=== PATIENT | female | born 1980 | race Caucasian/White ===

== ENCOUNTER 2020-12-08 21:38 | Emergency (ER) | payer BC ==
[2020-12-08] MEDS ORDERED: Ketorolac 15 MG/ML SDV IM ONE (23:05)
--- NOTE | 2020-12-08 23:14 | EDM.PDOC ---
ED HPI GENERAL MEDICAL PROBLEM - General Chief Complaint: Abdominal Pain Stated Complaint: GALLSTONE, ABDOMINAL PAIN Time Seen by Provider: 12/08/20 22:57 Source of Information: Reports: Patient History Limitations: Reports: No Limitations - History of Present Illness INITIAL COMMENTS - FREE TEXT/NARRATIVE: Patient is a 40-year-old female who presents today for quinten pain. Patient was seen yesterday in the walk-in clinic ultrasound shows gallstones and possible in her neck. Patient the time not having cholecystitis and was sent home to follow-up with surgery on Thursday. Patient is sedated the pain increase in abdomen but not any worse or better with anything was not radiating. Patient she is able tolerate p.o. Patient not take any meds for pain at home. abd Pain Score (Numeric/FACES): 4 - Related Data Allergies Allergy/AdvReac Type Severity Reaction Status Date / Time No Known Allergies Allergy Verified 12/08/20 22:33 Home Meds: Home Meds . [No Known Home Meds] 12/08/20 [History] Past Medical History - Past Health History Medical/Surgical History: Denies Medical/Surgical History - Infectious Disease History Infectious Disease History: Reports: Chicken Pox Social & Family History - Family History Family Medical History: Unobtainable ED ROS GENERAL - Review of Systems Review Of Systems: See Below Constitutional: Reports: No Symptoms HEENT: Reports: No Symptoms Respiratory: Reports: No Symptoms Cardiovascular: Reports: No Symptoms Endocrine: Reports: No Symptoms GI/Abdominal: Reports: Abdominal Pain : Reports: No Symptoms Musculoskeletal: Reports: No Symptoms Skin: Reports: No Symptoms Neurological: Reports: No Symptoms Psychiatric: Reports: No Symptoms Hematologic/Lymphatic: Reports: No Symptoms Immunologic: Reports: No Symptoms ED EXAM, GI/ABD - Physical Exam Exam: See Below Exam Limited By: No Limitations General Appearance: Alert, WD/WN, No Apparent Distress Respiratory/Chest: No Respiratory Distress, Lungs Clear, Normal Breath Sounds Cardiovascular: Normal Peripheral Pulses, Regular Rate, Rhythm GI/Abdominal Exam: Normal Bowel Sounds, Soft, No Distention, Tender Extremities: Normal Inspection, Normal Range of Motion Neurological: Alert, Oriented, CN II-XII Intact, Normal Cognition, Normal Gait Course - Vital Signs Last Recorded V/S: Last Vital Signs Temp 97.4 F 12/08/20 22:10 Pulse 75 06/12/21 22:10 Resp 18 12/08/20 22:10 BP 138/76 12/08/20 22:10 Pulse Ox 99 12/08/20 22:10 - Orders/Labs/Meds Labs: Laboratory Tests 12/08/20 12/08/20 12/08/20 Range/Units 23:44 23:50 23:50 WBC 10.99 (4.0-11.0) K/uL RBC 4.37 (4.30-5.90) M/uL Hgb 14.1 (12.0-16.0) g/dL Hct 41.4 (36.0-46.0) % MCV 94.7 (80.0-98.0) fL MCH 32.3 H (27.0-32.0) pg MCHC 34.1 (31.0-37.0) g/dL RDW Std Deviation 42.8 (28.0-62.0) fl RDW Coeff of Freddy 12 (11.0-15.0) % Plt Count 217 (150-400) K/uL MPV 10.70 (7.40-12.00) fL Neut % (Auto) 83.5 H (48.0-80.0) % Lymph % (Auto) 10.0 L (16.0-40.0) % [place] % (Auto) 6.1 (0.0-15.0) % Eos % (Auto) 0.2 (0.0-7.0) % Baso % (Auto) 0.2 (0.0-1.5) % Neut # (Auto) 9.2 H (1.4-5.7) K/uL Lymph # (Auto) 1.1 (0.6-2.4) K/uL [place] # (Auto) 0.7 (0.0-0.8) K/uL Eos # (Auto) 0.0 (0.0-0.7) K/uL Baso # (Auto) 0.0 (0.0-0.1) K/uL Nucleated RBC % 0.0 /100WBC Nucleated RBCs # 0 K/uL Sodium 135 L (136-145) mmol/L Potassium 3.6 (3.5-5.1) mmol/L Chloride 98 (98-107) mmol/L Carbon Dioxide 23.2 (21.0-32.0) mmol/L BUN 11 (7.0-18.0) mg/dL Creatinine 0.8 (0.6-1.0) mg/dL Est Cr Clr Drug Dosing TNP Estimated GFR (MDRD) > 60.0 ml/min Glucose 94 (74-106) mg/dL Calcium 8.6 (8.5-10.1) mg/dL Total Bilirubin 0.6 (0.2-1.0) mg/dL AST 14 L (15-37) IU/L ALT 20 (14-63) IU/L Alkaline Phosphatase 76 (46-116) U/L Total Protein 7.7 (6.4-8.2) g/dL Albumin 4.0 (3.4-5.0) g/dL Globulin 3.7 (2.6-4.0) g/dL Albumin/Globulin Ratio 1.1 (0.9-1.6) Lipase 66 L (73-393) U/L Urine HCG, Qual NEGATIVE (NEGATIVE) Meds: Medications Discontinued Medications Generic Name Dose Route Start Last Admin Trade Name Freq PRN Reason Stop Dose Admin Ketorolac Tromethamine 15 mg 12/08/20 23:05 12/08/20 23:51 Ketorolac 15 Mg/Ml Sdv IM 12/08/20 23:06 15 mg ONETIME ONE Administration - Re-Assessments/Exams Free Text/Narrative Re-Assessment/Exam: 12/09/20 00:43 Patient pain has been well controlled with Toradol in the ED. Patient is already scheduled to see surgery on Thursday. Repeated enzymes are within normal limits. Patient will be discharged home with pain control. Departure - Departure Time of Disposition: 00:44 Disposition: Home, Self-Care 01 Condition: Good Clinical Impression: Cholelithiasis - Discharge Information *PRESCRIPTION DRUG MONITORING PROGRAM REVIEWED*: Not Applicable *COPY OF PRESCRIPTION DRUG MONITORING REPORT IN PATIENT YULI: Not Applicable Instructions: Cholelithiasis, [id number] Referrals: PCP,None [Primary Care Provider] - Forms: ED Department Discharge Additional Instructions: The following information is given to patients seen in the emergency department who are being discharged to home. This information is to outline your options for follow-up care. We provide all patients seen in our emergency department with a follow-up referral. The need for follow-up, as well as the timing and circumstances, are variable depending upon the specifics of your emergency department visit. If you don't have a primary care physician on staff, we will provide you with a referral. We always advise you to contact your personal physician following an emergency department visit to inform them of the circumstance of the visit and for follow-up with them and/or the need for any referrals to a consulting specialist. The emergency department will also refer you to a specialist when appropriate. This referral assures that you have the opportunity for follow-up care with a specialist. All of these measure are taken in an effort to provide you with optimal care, which includes your follow-up. Under all circumstances we always encourage you to contact your private physician who remains a resource for coordinating your care. When calling for follow-up care, please make the office aware that this follow-up is from your recent emergency room visit. If for any reason you are refused follow-up, please contact the [facility] Emergency Department at and asked to speak to the emergency department charge nurse. Please follow up with your primary care physician. If you do not have a primary care physician, see below: [facility] [address] [place] [id number] [facility] [address] [place] [id number] You are seen today for abdominal pain. Previous ultrasound showed you have a gallstone in the gallbladder bladder neck. This may at some point require surgery but she have follow-up on Thursday. We will send you home with some pain medicine to get you through the weekend continue to follow-up. But if your pain becomes too intense please return to the ED. Otherwise follow-up with your schedule appointment. Sepsis Event Note (ED) - Evaluation Sepsis Screening Result: No Definite Risk - Focused Exam Vital Signs: Vital Signs Temp Pulse Resp BP Pulse Ox 12/08/20 22:10 97.4 F 75 18 138/76 99 - Assessment/Plan Plan: Patient is a 40-year-old female presents today for quinten pain. Patient does have some tenderness epigastric area. Will obtain basic labs and reassess patient. Will provide pain control.
[2020-12-09 00:18] LABS: BLOOD UREA NITROGEN,BUN 11 mg/dL (7.0-18.0); CARBON DIOXIDE,CO2 23.2 mmol/L (21.0-32.0); CHLORIDE,CL 98 mmol/L (98-107); GLUCOSE RANDOM 94 mg/dL (74-106); LIPASE 66 U/L (73-393); POTASSIUM,K 3.6 mmol/L (3.5-5.1); SODIUM,NA 135 mmol/L (136-145)
== END 2020-12-09 00:51 | disposition home or self-care (01) ==
LOC: MW.ED 21:38
DX: K80.20 Calculus of gallbladder without cholecystitis without obstruction (principal)
CPT/HCPCS: 36415; 80053; 81025; 83690; 85025; 96372; 99284; J1885; 99283

== ENCOUNTER 2020-12-13 08:18 | Inpatient (IN) | payer BC ==
[~2020-12-13 08:18] MED LIST: Albuterol 0.083% 2.5 MG/3 ML Neb Soln NEB PRN; Bupivacaine 0.5% 30 ML SDV ONE; HYDROmorphone 2 MG/ML Syringe IVPUSH PRN; Metoclopramide 10 MG/2 ML SDV IVPUSH PRN; Morphine 2 MG/ML SYRINGE IVPUSH PRN; Naloxone 0.4 MG/ML Syringe IVPUSH PRN; Octyl 2-Cyanoacrylate 1 Tube ONE; Ondansetron 4 MG/2 ML SDV IVPUSH PRN; Sodium Chloride 0.9% 10 ML SDV IV PRN; Sodium Chloride 0.9% 10 ML Syringe FLUSH PRN; Sodium Chloride 0.9% 2.5 ML Syringe FLUSH PRN; fentaNYL 100 MCG/2 ML SDV IVPUSH PRN
[2020-12-13] MEDS: Lactated Ringers 1,000 ML IV SCH ×2 (08:50→22:46)
[2020-12-13] MEDS ORDERED: fentaNYL 100 MCG/2 ML SDV ONE (08:54)
[2020-12-13] MEDS ORDERED: Rocuronium Bromide 50 MG/5 ML Syringe ONE ×3 (09:15→12:46)
[2020-12-13] MEDS ORDERED: Sugammadex Sodium 200 MG/2 ML VIAL ONE (09:15)
[2020-12-13] MEDS ORDERED: Lidocaine 2% 5 ML SDV ONE ×2 (09:15)
[2020-12-13] MEDS ORDERED: Ondansetron 4 MG/2 ML SDV ONE ×2 (09:15)
[2020-12-13] MEDS ORDERED: Morphine 10 MG/ML Syringe ONE (09:16)
--- NOTE | 2020-12-13 09:17 | PCM.PREANE ---
Preanesthetic Assessment - Anesthesia/Transfusion/Family Hx Anesthesia History: Prior Anesthesia Without Reaction Transfusion History: No Prior Transfusion(s) - Review of Systems General: No Symptoms Pulmonary: No Symptoms Cardiovascular: No Symptoms Gastrointestinal: No Symptoms Neurological: No Symptoms Other: Reports: None - Physical Assessment NPO Status Date: 12/13/20 NPO Status Time: 00:00 Vital Signs: Last Vital Signs Temp 98.6 F 12/13/20 08:45 Pulse 101 H 12/13/20 08:45 Resp 15 12/13/20 08:45 BP 138/91 H 12/13/20 08:45 Pulse Ox 94 L 12/13/20 08:45 Height: 5 ft 3 in Weight: 129 lb ASA Class: 1 Mental Status: Alert & Oriented x3 Dentition: Reports: Normal Dentition Thyro-Mental Finger Breadths: 3 Mouth Opening Finger Breadths: 3 ROM/Head Extension: Full Lungs: Clear to Auscultation, Normal Respiratory Effort Cardiovascular: Regular Rate, Regular Rhythm - Lab Values: Laboratory Last Values Urine HCG, Qual NEGATIVE (NEGATIVE) 12/13/20 08:28 - Allergies Allergies/Adverse Reactions: Allergies Allergy/AdvReac Type Severity Reaction Status Date / Time No Known Allergies Allergy Verified 12/11/20 09:49 - Blood Blood Available: No - Anesthesia Plan Pre-Op Medication Ordered: Other (scopolamine patch) - Acknowledgements Anesthesia Type Planned: General Anesthesia Pt an Appropriate Candidate for the Planned Anesthesia: Yes Alternatives and Risks of Anesthesia Discussed w Pt/Guardian: Yes Pt/Guardian Understands and Agrees with Anesthesia Plan: Yes PreAnesthesia Questionnaire - Past Health History Medical/Surgical History: Denies Medical/Surgical History HEENT History: Reports: Other (See Below) Other HEENT History: wears glasses/contacts Cardiovascular History: Reports: None Respiratory History: Reports: None Gastrointestinal History: Reports: Other (See Below) Other Gastrointestinal History: symptomatic cholelithiasis Genitourinary History: Reports: None [employer] REPA[employer]ER History: Reports: Musculoskeletal History: Reports: None Neurological History: Reports: None Psychiatric History: Reports: None Endocrine/Metabolic History: Reports: None Hematologic History: Reports: None Immunologic History: Reports: None Oncologic (Cancer) History: Reports: None Dermatologic History: Reports: None - Infectious Disease History Infectious Disease History: Reports: Chicken Pox - Past Surgical History Head Surgeries/Procedures: Reports: None HEENT Surgical History: Reports: Oral Surgery Cardiovascular Surgical History: Reports: None Respiratory Surgical History: Reports: None GI Surgical History: Reports: None Female Surgical History: Reports: Section Endocrine Surgical History: Reports: None Neurological Surgical History: Reports: None Musculoskeletal Surgical History: Reports: None Oncologic Surgical History: Reports: None Dermatological Surgical History: Reports: None - SUBSTANCE USE Tobacco Use Status *Q: Never Tobacco User - HOME MEDS Home Medications: Home Meds . [No Known Home Meds] 12/08/20 [History] - CURRENT (IN HOUSE) MEDS Current Meds: Current Medications Albuterol (Albuterol 0.083% 2.5 Mg/3 Ml Neb Soln) 2.5 mg NEB ONETIME PRN PRN Reason: Wheezing Droperidol (Droperidol 5 Mg/2 Ml Sdv) 0.625 mg IVPUSH ONETIME PRN PRN Reason: Nausea/Vomiting Fentanyl (Fentanyl 100 Mcg/2 Ml Sdv) 50 mcg IVPUSH Q5M PRN PRN Reason: Pain (mild 1-3) Hydromorphone HCl (Hydromorphone 2 Mg/Ml Syringe) 0.5 mg IVPUSH Q10M PRN PRN Reason: Pain (moderate 4-6) Lactated Ringer's (Ringers, Lactated) 1,000 mls @ 125 mls/hr IV ASDIRECTED ALEJO Last Admin: 12/13/20 08:50 Dose: 125 mls/hr Documented by: Metoclopramide HCl (Metoclopramide 10 Mg/2 Ml Sdv) 10 mg IVPUSH ONETIME PRN PRN Reason: Nausea/Vomiting Morphine Sulfate (Morphine 2 Mg/Ml Syringe) 2 mg IVPUSH Q10M PRN PRN Reason: Pain (severe 7-10) Naloxone HCl (Naloxone 0.4 Mg/Ml Syringe) 0.1 mg IVPUSH ASDIRECTED PRN PRN Reason: Respiratory Depression Ondansetron HCl (Ondansetron 4 Mg/2 Ml Sdv) 4 mg IVPUSH ONETIME PRN PRN Reason: Nausea/Vomiting Sodium Chloride (Sodium Chloride 0.9% 10 Ml Sdv) 10 ml IV ASDIRECTED PRN PRN Reason: IV Use Sodium Chloride (Sodium Chloride 0.9% 10 Ml Syringe) 10 ml FLUSH ASDIRECTED PRN PRN Reason: Keep Vein Open Sodium Chloride (Sodium Chloride 0.9% 2.5 Ml Syringe) 2.5 ml FLUSH ASDIRECTED PRN PRN Reason: Keep Vein Open Discontinued Medications Bupivacaine HCl (Bupivacaine 0.5% 30 Ml Sdv) Confirm Administered Dose 30 ml .ROUTE .STK-MED ONE Stop: 12/13/20 07:35 Fentanyl (Fentanyl 100 Mcg/2 Ml Sdv) Confirm Administered Dose 100 mcg .ROUTE .STK-MED ONE Stop: 12/13/20 08:55 Octyl Cyanoacrylate (Octyl 2-Cyanoacrylate 1 Tube) Confirm Administered Dose 1 applic .ROUTE .STK-MED ONE Stop: 12/13/20 07:36
[2020-12-13] MEDS ORDERED: Midazolam 1 MG/ML 2 ML SDV ONE (09:28)
[2020-12-13] MEDS ORDERED: propofoL 100 ML ONE (09:29)
[2020-12-13] MEDS ORDERED: Bupivacaine 0.5% 30 ML SDV ONE (12:09)
[2020-12-13] MEDS ORDERED: ceFAZolin 1 GM Vial ONE ×2 (12:13→12:14)
[2020-12-13] MEDS ORDERED: Ketorolac 30 MG/ML SDV ONE (13:36)
[2020-12-13] MEDS ORDERED: HYDROmorphone 2 MG/ML Syringe ONE (13:53)
[2020-12-13] MEDS ORDERED: HYDROmorphone 2 MG/ML Syringe IVPUSH PRN (14:10)
--- NOTE | 2020-12-13 14:10 | PCM.OPNOTE ---
- General Post-Op/Procedure Note Date of Surgery/Procedure: 12/13/20 Operative Procedure(s): Laparoscopic converted to open cholecystectomy Findings: Severely inflamed, enlarged and thickened gallbladder. Gallbladder hydrops. Pre Op Diagnosis: Symptomatic cholelithiasis Post-Op Diagnosis: Acute cholecystitis secondary to cholelithiasis Anesthesia Technique: General ET Tube Primary Surgeon: Isamar Siddiqui Pathology: gallbladder Fluid Replacement, Intraop: 1,600 Output, Urine Amount: 300 EBL in mLs: 150 Condition: Good
--- NOTE | 2020-12-13 14:10 | PCM.POSTAN ---
POST ANESTHESIA ASSESSMENT - MENTAL STATUS Mental Status: Oriented, Somnolent - VITAL SIGNS Vital Signs: Last Vital Signs Temp 98.6 F 12/13/20 08:45 Pulse 101 H 12/13/20 08:45 Resp 15 12/13/20 08:45 BP 138/91 H 12/13/20 08:45 Pulse Ox 94 L 12/13/20 08:45 - RESPIRATORY Respiratory Status: Respiratory Rate WNL, Airway Patent, O2 Saturation Stable - CARDIOVASCULAR CV Status: Pulse Rate WNL, Blood Pressure Stable - GASTROINTESTINAL GI Status: No Symptoms - POST OP HYDRATION Hydration Status: Adequate & Stable
--- NOTE | 2020-12-13 18:20 | OR ---
SURGEON: ISAMAR COOPER MD DATE OF PROCEDURE: 12/13/2020 PREOPERATIVE DIAGNOSIS: Symptomatic cholelithiasis. POSTOPERATIVE DIAGNOSIS: Acute cholecystitis secondary to cholelithiasis. PROCEDURE PERFORMED: Laparoscopic converted to open cholecystectomy. PRIMARY SURGEON: Isamar Cooper MD SECONDARY SURGEON: Feliciano Franks M.D. ANESTHESIA: General endotracheal anesthesia. FLUIDS: 1600 mL crystalloid. ESTIMATED BLOOD LOSS: 150 mL. URINE OUTPUT: 300 mL. FINDINGS: Severely distended, inflamed, and thickened gallbladder, surrounded in inflammatory rind. Gallbladder contained hydroptic bile. COMPLICATIONS: None. INDICATIONS: The patient is a 40-year-old female who developed a sudden onset of right upper quadrant pain last week. She was seen in her primary care provider's office. Her labs were grossly normal; however, her ultrasound showed a thickened and distended gallbladder containing a stone in the neck of the gallbladder. She was referred to my clinic. Over the weekend, she went to the emergency room due to increasing pain. When I saw her in clinic, the patient was tender in the right upper quadrant and there was a thickened mass that I could palpate there. I explained to the patient that she likely has acute cholecystitis and needs to go to the operating room urgently. I explained the need for a laparoscopic, possible open cholecystectomy. I explained the procedure, expected perioperative course, and the risks. She verbalized understanding and wishes to proceed. PROCEDURE IN DETAIL: The patient was brought into the OR, placed on the OR table in supine position. A time-out was completed verifying the patient's name, age, date of , allergies, and procedure to be performed. General endotracheal anesthesia was induced. The left arm was tucked to the patient's side and a Holcomb catheter placed. The abdomen was prepped and draped in usual standard fashion. I anesthetized the infraumbilical fold with 0.5% Marcaine plain. An 11 blade was used to make an incision along the infraumbilical fold. Cautery was used to dissect down to the level of subcutaneous fat. I bluntly dissected down to the fascia. The fascia was elevated with Kochers and incised sharply with a curved Morfin scissors. Entry into the abdomen was palpated digitally. Stay sutures were placed on either side using 0 Vicryl suture. A 12 mm Ca trocar was inserted into the abdomen and it was insufflated. I inspected the area underneath my initial trocar placement. No damage to surrounding structures was noted. The patient was placed into reverse Trendelenburg position and airplaned slightly to the left. 5 mm trocars were placed in the following locations under direct visualization; one in the epigastric area, one in the right flank, and one 2 fingerbreadths below the right subcostal margin in the midclavicular line. When I turned my attention to the right upper quadrant, I could see that the gallbladder was grossly distended and severely inflamed. I grasped the overlying omentum, which peeled away from the dome of the gallbladder. Given how tense and distended the gallbladder appeared, I brought an aspirating laparoscopic needle into the field. I pierced the dome of the gallbladder and aspirated 100 mL of clear mucousy bile. This confirmed that the patient had hydrops from an obstructing stone in the neck of the gallbladder. The needle was removed and passed off the field. I was able to grasp the dome of the gallbladder and elevate it. The gallbladder itself had a thickened and inflamed rind. The transverse colon and duodenum were densely adhered to the body of the gallbladder itself. Using suction, I gently peeled away as much of this rind as I safely could; however, the adhesions were quite dense and because everything was so inflamed, there was bleeding. Given these findings, I felt it safest to convert to open to take down the rest of these inflammatory adhesions with my hand and to more safely dissect around my proximal gallbladder. The 5 mm trocars and a 12 mm Ca trocar were removed. The fascia at the infraumbilical port site was closed with interrupted 0 Vicryl sutures. The subcutaneous fat was closed with an interrupted 3-0 Vicryl stitch. The skin was closed with a running 4-0 Monocryl stitch. I anesthetized the right upper quadrant with 0.5% Marcaine plain. A right oblique incision was made using a 15 blade. This incision was made 2 fingerbreadths below the right subcostal margin. Cautery was used to dissect down to the level of the fascia. The fascia was entered using electrocautery. The muscle was then meticulously taken down. I grasped the posterior fascia and peritoneum with hemostats and incised it sharply with a curved Morfin scissors. I then placed my finger into the abdomen and extended my incision both medially and laterally. I identified the edge of the liver and placed my hand over the dome of the gallbladder. I then slid down the body of the gallbladder and began to finger dissect the adhesions and inflammatory rind around the gallbladder itself. Using finger dissection, these peeled away easily and I was able to get down to the proximal aspect of my gallbladder. I could see what appeared to be the cystic duct, but it was again covered in a dense inflammatory rind around the peritoneum. Dr. Feliciano Franks was asked to come in and assist with the case. Moistened laps and retractors were put in place. We began our dissection on the medial aspect of the gallbladder. Using a Kittner, we attempted to peel down some of the rind around what appeared to be the cystic duct. We were able to get some of it to come down; however, the adhesions were quite dense. The decision was made to proceed instead in a dome down fashion. Using a [place] scissors and cautery, we began to create a plane along the top of the gallbladder and the liver edge. Using gentle blunt dissection, we were eventually able to make a plane between the gallbladder and the cystic plate itself. Using cautery, we opened up the peritoneal attachments laterally and medially coming down along the cystic triangle. We identified a vascular-appearing structure which was proximal to what appeared to be the cystic duct. Using right angle, we cleared this away. It appeared to be the cystic artery. We doubly clipped and ligated this. After cutting it, we could see that the cut end of the stump was pulsatile. Using a Kittner, we then took down the remainder of the attachments around the cystic duct. We were eventually able to clear these all away and clearly see the insertion of the cystic duct on both the gallbladder as well as the common bile duct. Her cystic duct was quite short. We used a 5 mm clip flight engineer inspector to clip the cystic duct as close to the gallbladder as we could. 3-0 Vicryl ties were then placed on the proximal end of the cystic duct. It was then doubly sutured, then ligated. The gallbladder was passed off the field. Overall, the field appeared quite hemostatic. We irrigated it with copious amounts of normal saline mixed with Ancef. This was then all suctioned out. Megan and Surgicel were then placed in the gallbladder fossa to ensure continued hemostasis. A 19-Welsh Bony drain was brought out through the right flank port site. It was placed under the liver bed in our operative field. It was secured to the skin using a 2-0 silk suture. Once we had ensured that all counts were complete and correct, we then began to close the abdomen. The posterior fascia and peritoneum were closed with a running 0 Vicryl suture. The anterior fascia was closed with interrupted 0 Ethibond sutures. An On-Q pump was then placed on top of the fascia, and the fascia was additionally anesthetized with 0.5% Marcaine plain. The subcutaneous fat was closed with a deep running 3-0 Vicryl suture and interrupted superficial 3-0 Vicryl sutures. The skin was closed with winnie. The epigastric port site was closed with interrupted 4-0 Vicryl. My infraumbilical and epigastric port sites were covered with Steri-Strips. The umbilical incision was covered with a Tegaderm. 4 x 4 fluffs and tape were used to cover my right oblique incision and the epigastric incision. It was secured in place with tape. The patient was extubated and taken to PACU in stable condition. All counts were complete and correct at the end of the case. HARJINDER / DARRIAN /[id number]
[2020-12-13] MEDS: Ketorolac 15 MG/ML SDV IVPUSH SCH (19:34)
[2020-12-13] MEDS ORDERED: Acetaminophen 1,000 MG in Premix Bag 1 BAG IV PRN (20:00)
[2020-12-13] MEDS: oxyCODONE 5 MG Tab PO PRN (20:47)
[2020-12-13] MEDS: Cyclobenzaprine 5 MG Tab PO SCH (22:06)
[2020-12-14] MEDS: Ketorolac 15 MG/ML SDV IVPUSH SCH ×3 (02:00→13:13)
[2020-12-14 06:17] LABS: BLOOD UREA NITROGEN,BUN 6 mg/dL (7.0-18.0); CARBON DIOXIDE,CO2 27.3 mmol/L (21.0-32.0); CHLORIDE,CL 100 mmol/L (98-107); GLUCOSE RANDOM 114 mg/dL (74-106); POTASSIUM,K 3.9 mmol/L (3.5-5.1); SODIUM,NA 135 mmol/L (136-145)
[2020-12-14] MEDS: Lactated Ringers 1,000 ML IV SCH (06:28)
[2020-12-14] MEDS: Cyclobenzaprine 5 MG Tab PO SCH ×3 (06:29→21:44)
--- NOTE | 2020-12-14 07:15 | PCM48HPAN ---
Post Anesthesia Note - EVALUATION WITHIN 48HRS OF ANESTHETIC Vital Signs in Normal Range: Yes Patient Participated in Evaluation: Yes Respiratory Function Stable: Yes Airway Patent: Yes Cardiovascular Function Stable: Yes Hydration Status Stable: Yes Pain Control Satisfactory: Yes Nausea and Vomiting Control Satisfactory: Yes Mental Status Recovered: Yes Vital Signs: Last Vital Signs Temp 36.9 C 12/14/20 04:00 Pulse 88 12/14/20 04:00 Resp 17 12/14/20 04:00 BP 113/77 12/14/20 04:00 Pulse Ox 95 12/14/20 04:00
[2020-12-14] MEDS: oxyCODONE 5 MG Tab PO PRN ×3 (07:41→23:30)
[2020-12-14] MEDS: Polyethylene Glycol 3350 Powder 17 GM Packet PO SCH (08:39)
--- NOTE | 2020-12-14 17:56 | PCM.SURGPN ---
- General Info Date of Service: 12/14/20 Date of Surgery/Procedure: 12/13/20 POD#: 1 Functional Status: Reports: Pain Controlled, Tolerating Diet, Urinating, Incentive Spirometry. Denies: New Symptoms - Review of Systems General: Reports: No Symptoms HEENT: Reports: No Symptoms Pulmonary: Reports: No Symptoms Cardiovascular: Reports: No Symptoms Gastrointestinal: Reports: Abdominal Pain (When moving) Genitourinary: Reports: No Symptoms Musculoskeletal: Reports: No Symptoms Skin: Reports: No Symptoms - Patient Data Vitals - Most Recent: Last Vital Signs Temp 36.4 C 12/14/20 15:30 Pulse 106 H 12/14/20 15:30 Resp 17 12/14/20 15:30 BP 102/56 L 12/14/20 15:30 Pulse Ox 98 12/14/20 15:30 Weight - Most Recent: 58.513 kg I&O - Last 24 Hours: Intake & Output 12/14/20 12/14/20 12/14/20 06:59 14:59 22:59 Intake Total 1700 1200 Output Total 80 1550 2490 Balance 91F -1550 -1290 Lab Results Last 24 Hrs: Laboratory Results - last 24 hr 12/14/20 12/14/20 Range/Units 05:16 05:16 WBC 7.18 (4.0-11.0) K/uL RBC 3.74 L (4.30-5.90) M/uL Hgb 11.8 L (12.0-16.0) g/dL Hct 35.2 L (36.0-46.0) % MCV 94.1 (80.0-98.0) fL MCH 31.6 (27.0-32.0) pg MCHC 33.5 (31.0-37.0) g/dL RDW Std Deviation 43.0 (28.0-62.0) fl RDW Coeff of Freddy 13 (11.0-15.0) % Plt Count 278 (150-400) K/uL MPV 10.20 (7.40-12.00) fL Nucleated RBC % 0.0 /100WBC Nucleated RBCs # 0 K/uL Sodium 135 L (136-145) mmol/L Potassium 3.9 (3.5-5.1) mmol/L Chloride 100 (98-107) mmol/L Carbon Dioxide 27.3 (21.0-32.0) mmol/L BUN 6 L (7.0-18.0) mg/dL Creatinine 0.7 (0.6-1.0) mg/dL Est Cr Clr Drug Dosing 90.14 mL/min Estimated GFR (MDRD) > 60.0 ml/min Glucose 114 H (74-106) mg/dL Calcium 8.0 L (8.5-10.1) mg/dL Total Bilirubin 0.3 (0.2-1.0) mg/dL AST 35 (15-37) IU/L ALT 40 (14-63) IU/L Alkaline Phosphatase 79 (46-116) U/L Total Protein 5.9 L (6.4-8.2) g/dL Albumin 2.4 L (3.4-5.0) g/dL Globulin 3.5 (2.6-4.0) g/dL Albumin/Globulin Ratio 0.7 L (0.9-1.6) Med Orders - Current: Current Medications Cyclobenzaprine HCl (Cyclobenzaprine 5 Mg Tab) 5 mg PO TID [facility] Last Admin: 12/14/20 13:12 Dose: 5 mg Documented by: Hydromorphone HCl (Hydromorphone 2 Mg/Ml Syringe) 0.5 mg IVPUSH Q1H PRN PRN Reason: Pain (severe 7-10) Acetaminophen 1,000 mg/ Premix 100 mls @ 400 mls/hr IV ONETIME PRN PRN Reason: PAIN Oxycodone HCl (Oxycodone 5 Mg Tab) 10 mg PO Q4H PRN PRN Reason: Abdominal Pain Last Admin: 12/14/20 07:41 Dose: 10 mg Documented by: Polyethylene Glycol (Polyethylene Glycol 3350 Powder 17 Gm Packet) 17 gm PO DAILY [facility] Last Admin: 12/14/20 08:39 Dose: 17 gm Documented by: Sodium Chloride (Sodium Chloride 0.9% 10 Ml Sdv) 10 ml IV ASDIRECTED PRN PRN Reason: IV Use Sodium Chloride (Sodium Chloride 0.9% 10 Ml Syringe) 10 ml FLUSH ASDIRECTED PRN PRN Reason: Keep Vein Open Sodium Chloride (Sodium Chloride 0.9% 2.5 Ml Syringe) 2.5 ml FLUSH ASDIRECTED PRN PRN Reason: Keep Vein Open Discontinued Medications Albuterol (Albuterol 0.083% 2.5 Mg/3 Ml Neb Soln) 2.5 mg NEB ONETIME PRN PRN Reason: Wheezing Bupivacaine HCl (Bupivacaine 0.5% 30 Ml Sdv) Confirm Administered Dose 30 ml .ROUTE .STK-MED ONE Stop: 12/13/20 07:35 Bupivacaine HCl (Bupivacaine 0.5% 30 Ml Sdv) Confirm Administered Dose 120 ml .ROUTE .STK-MED ONE Stop: 12/13/20 12:10 Cefazolin Sodium (Cefazolin 1 Gm Vial) Confirm Administered Dose 1 gm .ROUTE .STK-MED ONE Stop: 12/13/20 12:14 Cefazolin Sodium (Cefazolin 1 Gm Vial) Confirm Administered Dose 2 gm .ROUTE .STK-MED ONE Stop: 12/13/20 12:15 Droperidol (Droperidol 5 Mg/2 Ml Sdv) 0.625 mg IVPUSH ONETIME PRN PRN Reason: Nausea/Vomiting Fentanyl (Fentanyl 100 Mcg/2 Ml Sdv) 50 mcg IVPUSH Q5M PRN PRN Reason: Pain (mild 1-3) Fentanyl (Fentanyl 100 Mcg/2 Ml Sdv) Confirm Administered Dose 100 mcg .ROUTE .STK-MED ONE Stop: 12/13/20 08:55 Hydromorphone HCl (Hydromorphone 2 Mg/Ml Syringe) 0.5 mg IVPUSH Q10M PRN PRN Reason: Pain (moderate 4-6) Hydromorphone HCl (Hydromorphone 2 Mg/Ml Syringe) Confirm Administered Dose 2 mg .ROUTE .STK-MED ONE Stop: 12/13/20 13:54 Lactated Ringer's (Ringers, Lactated) 1,000 mls @ 125 mls/hr IV ASDIRECTED ALEJO Last Admin: 12/14/20 06:28 Dose: 125 mls/hr Documented by: Propofol (Diprivan 100 Ml) Confirm Administered Dose 100 mls @ as directed .ROUTE .STK-MED ONE Stop: 12/13/20 09:30 Acetaminophen (Ofirmev 1000 Mg/100 Ml) Confirm Administered Dose 100 mls @ as directed .ROUTE .STK-MED ONE Stop: 12/13/20 10:09 Ketorolac Tromethamine (Ketorolac 30 Mg/Ml Sdv) Confirm Administered Dose 30 mg .ROUTE .[employer]-MED ONE Stop: 12/13/20 13:37 Ketorolac Tromethamine (Ketorolac 15 Mg/Ml Sdv) 15 mg IVPUSH Q6H ALEJO Stop: 12/14/20 14:01 Last Admin: 12/14/20 13:13 Dose: 15 mg Documented by: Lidocaine (Lidocaine 2% 5 Ml Sdv) Confirm Administered Dose 5 ml .ROUTE .STKKBOX-MED ONE Stop: 12/13/20 09:16 Lidocaine (Lidocaine 2% 5 Ml Sdv) Confirm Administered Dose 5 ml .ROUTE .[employer]-MED ONE Stop: 12/13/20 09:16 Lidocaine HCl (Lidocaine 1% 5 Ml Sdv) Confirm Administered Dose 0 ml .ROUTE .[facility]-MED ONE Stop: 12/13/20 09:16 Metoclopramide HCl (Metoclopramide 10 Mg/2 Ml Sdv) 10 mg IVPUSH ONETIME PRN PRN Reason: Nausea/Vomiting Midazolam HCl (Midazolam 1 Mg/Ml 2 Ml Sdv) Confirm Administered Dose 2 mg .ROUTE .[employer]-MED ONE Stop: 12/13/20 09:29 Morphine Sulfate (Morphine 2 Mg/Ml Syringe) 2 mg IVPUSH Q10M PRN PRN Reason: Pain (severe 7-10) Morphine Sulfate (Morphine 10 Mg/Ml Syringe) Confirm Administered Dose 10 mg .ROUTE .[facility]-MED ONE Stop: 12/13/20 09:17 Naloxone HCl (Naloxone 0.4 Mg/Ml Syringe) 0.1 mg IVPUSH ASDIRECTED PRN PRN Reason: Respiratory Depression Octyl Cyanoacrylate (Octyl 2-Cyanoacrylate 1 Tube) Confirm Administered Dose 1 applic .ROUTE .[facility]-MED ONE Stop: 12/13/20 07:36 Ondansetron HCl (Ondansetron 4 Mg/2 Ml Sdv) 4 mg IVPUSH ONETIME PRN PRN Reason: Nausea/Vomiting Ondansetron HCl (Ondansetron 4 Mg/2 Ml Sdv) Confirm Administered Dose 4 mg .ROUTE .[employer]-MED ONE Stop: 12/13/20 09:16 Ondansetron HCl (Ondansetron 4 Mg/2 Ml Sdv) Confirm Administered Dose 4 mg .ROUTE .[facility]-MED ONE Stop: 12/13/20 09:16 Rocuronium [place] (Rocuronium [place] 50 Mg/5 Ml Syringe) Confirm Administered Dose 50 mg .ROUTE .STK-MED ONE Stop: 12/13/20 09:16 Rocuronium [place] (Rocuronium [place] 50 Mg/5 Ml Syringe) Confirm Administered Dose 50 mg .ROUTE .STK-MED ONE Stop: 12/13/20 12:15 Rocuronium [place] (Rocuronium [place] 50 Mg/5 Ml Syringe) Confirm Administered Dose 50 mg .ROUTE .STK-MED ONE Stop: 12/13/20 12:47 Sugammadex Sodium (Sugammadex Sodium 200 Mg/2 Ml Vial) Confirm Administered Dose 200 mg .ROUTE .STK-MED ONE Stop: 12/13/20 09:16 - Exam Wound/Incisions: Healing Well, Dressing Dry and Intact, Other (Drain with dark bloody output.) HEENT: Pupils Equal Lungs: Normal Respiratory Effort Cardiovascular: Regular Rate GI/Abdominal Exam: Soft, Non-Tender, No Distention, No Mass Extremities: Normal Inspection Skin: Warm, Dry, Intact Neurological: No New Focal Deficit Sepsis Event Note - Evaluation Sepsis Screening Result: No Definite Risk - Focused Exam Vital Signs: Vital Signs Temp Pulse Resp BP Pulse Ox 12/14/20 15:30 36.4 C 106 H 17 102/56 L 98 12/14/20 11:44 36.9 C 88 18 97 12/14/20 07:26 36.6 C 81 16 115/75 96 - Problem List & Annotations (1) Acute cholecystitis due to biliary calculus SNOMED Code(s): 79770380391831 Code(s): K80.00 - CALCULUS OF GALLBLADDER W ACUTE CHOLECYST W/O OBSTRUCTION Status: Acute Current Visit: Yes - Problem List Review Problem List Initiated/Reviewed/Updated: Yes - My Orders Last 24 Hours: Active Orders 24 hr Category Date Time Status Remove Holcomb Catheter [Urinary Catheter Removal] [RC] Care 12/14/20 07:19 Active PER UNIT ROUTINE Regular Diet [DIET] Diet 12/14/20 Lunch Active Acetaminophen [Ofirmev 1000 mg/100 ml] 1,000 mg Med 12/13/20 20:00 Active Premix Bag 1 bag IV ONETIME Cyclobenzaprine [Flexeril] Med 12/13/20 22:00 Active 5 mg PO TID polyethylene glycoL 3350 [MiraLAX] Med 12/14/20 09:00 Active 17 gm PO DAILY Medication Orders Cyclobenzaprine HCl (Cyclobenzaprine 5 Mg Tab) 5 mg PO TID [facility] Last Admin: 12/14/20 13:12 Dose: 5 mg Documented by: Admin: 12/14/20 06:29 Dose: 5 mg Documented by: Admin: 12/13/20 22:06 Dose: 5 mg Documented by: MYLES Hydromorphone HCl (Hydromorphone 2 Mg/Ml Syringe) 0.5 mg IVPUSH Q1H PRN PRN Reason: Pain (severe 7-10) Acetaminophen 1,000 mg/ Premix 100 mls @ 400 mls/hr IV ONETIME PRN PRN Reason: PAIN Oxycodone HCl (Oxycodone 5 Mg Tab) 10 mg PO Q4H PRN PRN Reason: Abdominal Pain Last Admin: 12/14/20 07:41 Dose: 10 mg Documented by: NELLA Cosigned by: YANIV Admin: 12/13/20 20:47 Dose: 10 mg Documented by: MYLES Polyethylene Glycol (Polyethylene Glycol 3350 Powder 17 Gm Packet) 17 gm PO DAILY [facility] Last Admin: 12/14/20 08:39 Dose: 17 gm Documented by: NELLA Cosigned by: YANIV Sodium Chloride (Sodium Chloride 0.9% 10 Ml Sdv) 10 ml IV ASDIRECTED PRN PRN Reason: IV Use Sodium Chloride (Sodium Chloride 0.9% 10 Ml Syringe) 10 ml FLUSH ASDIRECTED PRN PRN Reason: Keep Vein Open Sodium Chloride (Sodium Chloride 0.9% 2.5 Ml Syringe) 2.5 ml FLUSH ASDIRECTED PRN PRN Reason: Keep Vein Open - Plan Plan (Free Text/Narrative):: The patient is doing well this morning and appears comfortable. Will remove Holcomb catheter and advance diet to regular. Can discontinue IV fluids. No need for IV antibiotics. LFTs all appear normal. Hemoglobin slightly down but not unexpected for this case. Vital signs are stable. Continue to schedule IV Tylenol and IV Toradol. Continue scheduled Flexeril. Will discharge home likely tomorrow.
--- NOTE | 2020-12-14 18:01 | PCM.DCSUM1 ---
Discharge Summary - Hospital Course Free Text/Narrative:: Patient is a 40-year-old female who came to my clinic on Thursday with right upper quadrant abdominal pain. Her pre-visit workup was concerning for acute cholecystitis however her white count was normal and the right upper quadrant ultrasound showed a distended and thickened gallbladder but was not read as acute cholecystitis. The patient was scheduled for urgent laparoscopic possible open cholecystectomy. Intraoperatively she was found to have a thickened and densely inflamed gallbladder with an inflammatory rind attaching the gallbladder to the surrounding tissues. Her surgery was converted from laparoscopic to open to allow safe dissection and removal of the gallbladder. In the postoperative period the patient remained stable. My partner came on POD #2. She was stable and drains were removed. She was discharged home. - Discharge Data Discharge Date: 12/15/20 Discharge Disposition: Home, Self-Care 01 Condition: Good - Referral to Home Health Primary Care Physician: PCP None - Discharge Diagnosis/Problem(s) (1) Acute cholecystitis due to biliary calculus SNOMED Code(s): 16483577846793 ICD Code: K80.00 - CALCULUS OF GALLBLADDER W ACUTE CHOLECYST W/O OBSTRUCTION Status: Acute - Patient Summary/Data Operative Procedure(s) Performed: Laparoscopic converted to open cholecystectomy - Patient Instructions Diet: Regular Diet as Tolerated, Drink 8-10+ Glasses/Day Diet, Other: Avoid greasy/fatty foods for one month after surgery. Activity: No Lifting Over 20 Pounds (For 6 weeks), Rest and Relax Today Driving: Do Not Drive (For one week) Showering/Bathing: May Shower, No Tub Bathing/Swimming (For 2 weeks) Wound/Incision Care: Keep Operative Site/Wound Site Clean and Dry Notify Provider of: Fever, Increased Pain, Swelling and Redness, Drainage, Nausea and/or Vomiting Other/Special Instructions: Take Toradol and Flexeril on a scheduled basis until you're done with these medications. After that he can use ibuprofen as needed for pain. Take Percocet for moderate to severe pain. Do not take additional Tylenol when taking the Percocet. You will find that your energy level is low. This is due to your body healing. Avoid strenuous activity or heavy lifting for the next 6 weeks. Take a multivitamin at home. Drink plenty of water and use a fiber supplement to promote regular bowel movements. Take an [id number] laxative as needed for any constipation. - Discharge Plan *PRESCRIPTION DRUG MONITORING PROGRAM REVIEWED*: Yes *COPY OF PRESCRIPTION DRUG MONITORING REPORT IN PATIENT YULI: Yes Tobacco Cessation Medication: Prescription Given Home Medications: Home Meds . [No Known Home Meds] 12/08/20 [History] Patient Handouts: Cyclobenzaprine tablets, Open Cholecystectomy, Open Cholecystectomy, Care After, Acetaminophen; Oxycodone tablets, Ketorolac Oral Tablets Referrals: Isamar Siddiqui MD [Physician] - 12/21/20 9:30 am - Discharge Summary/Plan Comment DC Time >30 min.: No - General Info Date of Service: 12/15/20 Functional Status: Reports: Pain Controlled, Tolerating Diet, Ambulating, Urinating - Review of Systems General: Reports: No Symptoms HEENT: Reports: No Symptoms Pulmonary: Reports: No Symptoms Cardiovascular: Reports: No Symptoms Gastrointestinal: Reports: No Symptoms - Patient Data Vitals - Most Recent: Last Vital Signs Temp 36.4 C 12/14/20 15:30 Pulse 106 H 12/14/20 15:30 Resp 17 12/14/20 15:30 BP 102/56 L 12/14/20 15:30 Pulse Ox 98 12/14/20 15:30 Weight - Most Recent: 58.513 kg I&O - Last 24 hours: Intake & Output 12/14/20 12/14/20 12/14/20 06:59 14:59 22:59 Intake Total 1700 1200 Output Total 80 1550 2490 Balance 91F -1550 -1290 Lab Results - Last 24 hrs: Laboratory Results - last 24 hr 12/14/20 12/14/20 Range/Units 05:16 05:16 WBC 7.18 (4.0-11.0) K/uL RBC 3.74 L (4.30-5.90) M/uL Hgb 11.8 L (12.0-16.0) g/dL Hct 35.2 L (36.0-46.0) % MCV 94.1 (80.0-98.0) fL MCH 31.6 (27.0-32.0) pg MCHC 33.5 (31.0-37.0) g/dL RDW Std Deviation 43.0 (28.0-62.0) fl RDW Coeff of Freddy 13 (11.0-15.0) % Plt Count 278 (150-400) K/uL MPV 10.20 (7.40-12.00) fL Nucleated RBC % 0.0 /100WBC Nucleated RBCs # 0 K/uL Sodium 135 L (136-145) mmol/L Potassium 3.9 (3.5-5.1) mmol/L Chloride 100 (98-107) mmol/L Carbon Dioxide 27.3 (21.0-32.0) mmol/L BUN 6 L (7.0-18.0) mg/dL Creatinine 0.7 (0.6-1.0) mg/dL Est Cr Clr Drug Dosing 90.14 mL/min Estimated GFR (MDRD) > 60.0 ml/min Glucose 114 H (74-106) mg/dL Calcium 8.0 L (8.5-10.1) mg/dL Total Bilirubin 0.3 (0.2-1.0) mg/dL AST 35 (15-37) IU/L ALT 40 (14-63) IU/L Alkaline Phosphatase 79 (46-116) U/L Total Protein 5.9 L (6.4-8.2) g/dL Albumin 2.4 L (3.4-5.0) g/dL Globulin 3.5 (2.6-4.0) g/dL Albumin/Globulin Ratio 0.7 L (0.9-1.6) Med Orders - Current: Current Medications Cyclobenzaprine HCl (Cyclobenzaprine 5 Mg Tab) 5 mg PO TID [facility] Last Admin: 12/14/20 13:12 Dose: 5 mg Documented by: Hydromorphone HCl (Hydromorphone 2 Mg/Ml Syringe) 0.5 mg IVPUSH Q1H PRN PRN Reason: Pain (severe 7-10) Acetaminophen 1,000 mg/ Premix 100 mls @ 400 mls/hr IV ONETIME PRN PRN Reason: PAIN Oxycodone HCl (Oxycodone 5 Mg Tab) 10 mg PO Q4H PRN PRN Reason: Abdominal Pain Last Admin: 12/14/20 07:41 Dose: 10 mg Documented by: Polyethylene Glycol (Polyethylene Glycol 3350 Powder 17 Gm Packet) 17 gm PO DAILY [facility] Last Admin: 12/14/20 08:39 Dose: 17 gm Documented by: Sodium Chloride (Sodium Chloride 0.9% 10 Ml Sdv) 10 ml IV ASDIRECTED PRN PRN Reason: IV Use Sodium Chloride (Sodium Chloride 0.9% 10 Ml Syringe) 10 ml FLUSH ASDIRECTED PRN PRN Reason: Keep Vein Open Sodium Chloride (Sodium Chloride 0.9% 2.5 Ml Syringe) 2.5 ml FLUSH ASDIRECTED PRN PRN Reason: Keep Vein Open Discontinued Medications Albuterol (Albuterol 0.083% 2.5 Mg/3 Ml Neb Soln) 2.5 mg NEB ONETIME PRN PRN Reason: Wheezing Bupivacaine HCl (Bupivacaine 0.5% 30 Ml Sdv) Confirm Administered Dose 30 ml .ROUTE .STK-MED ONE Stop: 12/13/20 07:35 Bupivacaine HCl (Bupivacaine 0.5% 30 Ml Sdv) Confirm Administered Dose 120 ml .ROUTE .STK-MED ONE Stop: 12/13/20 12:10 Cefazolin Sodium (Cefazolin 1 Gm Vial) Confirm Administered Dose 1 gm .ROUTE .STK-MED ONE Stop: 12/13/20 12:14 Cefazolin Sodium (Cefazolin 1 Gm Vial) Confirm Administered Dose 2 gm .ROUTE .STK-MED ONE Stop: 12/13/20 12:15 Droperidol (Droperidol 5 Mg/2 Ml Sdv) 0.625 mg IVPUSH ONETIME PRN PRN Reason: Nausea/Vomiting Fentanyl (Fentanyl 100 Mcg/2 Ml Sdv) 50 mcg IVPUSH Q5M PRN PRN Reason: Pain (mild 1-3) Fentanyl (Fentanyl 100 Mcg/2 Ml Sdv) Confirm Administered Dose 100 mcg .ROUTE .STK-MED ONE Stop: 12/13/20 08:55 Hydromorphone HCl (Hydromorphone 2 Mg/Ml Syringe) 0.5 mg IVPUSH Q10M PRN PRN Reason: Pain (moderate 4-6) Hydromorphone HCl (Hydromorphone 2 Mg/Ml Syringe) Confirm Administered Dose 2 mg .ROUTE .STK-MED ONE Stop: 12/13/20 13:54 Lactated Ringer's (Ringers, Lactated) 1,000 mls @ 125 mls/hr IV ASDIRECTED ALEJO Last Admin: 12/14/20 06:28 Dose: 125 mls/hr Documented by: Propofol (Diprivan 100 Ml) Confirm Administered Dose 100 mls @ as directed .ROUTE .STK-MED ONE Stop: 12/13/20 09:30 Acetaminophen (Ofirmev 1000 Mg/100 Ml) Confirm Administered Dose 100 mls @ as directed .ROUTE .STK-MED ONE Stop: 12/13/20 10:09 Ketorolac Tromethamine (Ketorolac 30 Mg/Ml Sdv) Confirm Administered Dose 30 mg .ROUTE .ST-MED ONE Stop: 12/13/20 13:37 Ketorolac Tromethamine (Ketorolac 15 Mg/Ml Sdv) 15 mg IVPUSH Q6H ALEJO Stop: 12/14/20 14:01 Last Admin: 12/14/20 13:13 Dose: 15 mg Documented by: Lidocaine (Lidocaine 2% 5 Ml Sdv) Confirm Administered Dose 5 ml .ROUTE .STK-MED ONE Stop: 12/13/20 09:16 Lidocaine (Lidocaine 2% 5 Ml Sdv) Confirm Administered Dose 5 ml .ROUTE .ST-MED ONE Stop: 12/13/20 09:16 Lidocaine HCl (Lidocaine 1% 5 Ml Sdv) Confirm Administered Dose 0 ml .ROUTE .ST-MED ONE Stop: 12/13/20 09:16 Metoclopramide HCl (Metoclopramide 10 Mg/2 Ml Sdv) 10 mg IVPUSH ONETIME PRN PRN Reason: Nausea/Vomiting Midazolam HCl (Midazolam 1 Mg/Ml 2 Ml Sdv) Confirm Administered Dose 2 mg .ROUTE .ST-MED ONE Stop: 12/13/20 09:29 Morphine Sulfate (Morphine 2 Mg/Ml Syringe) 2 mg IVPUSH Q10M PRN PRN Reason: Pain (severe 7-10) Morphine Sulfate (Morphine 10 Mg/Ml Syringe) Confirm Administered Dose 10 mg .ROUTE .ST-MED ONE Stop: 12/13/20 09:17 Naloxone HCl (Naloxone 0.4 Mg/Ml Syringe) 0.1 mg IVPUSH ASDIRECTED PRN PRN Reason: Respiratory Depression Octyl Cyanoacrylate (Octyl 2-Cyanoacrylate 1 Tube) Confirm Administered Dose 1 applic .ROUTE .ST-MED ONE Stop: 12/13/20 07:36 Ondansetron HCl (Ondansetron 4 Mg/2 Ml Sdv) 4 mg IVPUSH ONETIME PRN PRN Reason: Nausea/Vomiting Ondansetron HCl (Ondansetron 4 Mg/2 Ml Sdv) Confirm Administered Dose 4 mg .ROUTE .STK-MED ONE Stop: 12/13/20 09:16 Ondansetron HCl (Ondansetron 4 Mg/2 Ml Sdv) Confirm Administered Dose 4 mg .ROUTE .STK-MED ONE Stop: 12/13/20 09:16 Rocuronium [place] (Rocuronium [place] 50 Mg/5 Ml Syringe) Confirm Administered Dose 50 mg .ROUTE .STK-MED ONE Stop: 12/13/20 09:16 Rocuronium [place] (Rocuronium [place] 50 Mg/5 Ml Syringe) Confirm Administered Dose 50 mg .ROUTE .STK-MED ONE Stop: 12/13/20 12:15 Rocuronium [place] (Rocuronium [place] 50 Mg/5 Ml Syringe) Confirm Administered Dose 50 mg .ROUTE .STK-MED ONE Stop: 12/13/20 12:47 Sugammadex Sodium (Sugammadex Sodium 200 Mg/2 Ml Vial) Confirm Administered Dose 200 mg .ROUTE .STK-MED ONE Stop: 12/13/20 09:16 - Exam General: Reports: Alert, Oriented HEENT: Reports: Pupils Equal, Pupils Reactive Lungs: Reports: Normal Respiratory Effort Cardiovascular: Reports: Regular Rate GI/Abdominal Exam: Soft, Non-Tender, No Distention, No Mass
[2020-12-15] MEDS: Cyclobenzaprine 5 MG Tab PO SCH (05:53)
[2020-12-15] MEDS: oxyCODONE 5 MG Tab PO PRN (05:53)
[2020-12-15] MEDS: Polyethylene Glycol 3350 Powder 17 GM Packet PO SCH (08:01)
--- NOTE | 2020-12-16 09:10 | PCM.SN.2 ---
- Free Text/Narrative Note: Late entry: Drain and On-Q removed without difficulty. No drainage. Patient discharged.
== END 2020-12-15 09:25 | disposition home or self-care (01) | DRG 263 ==
LOC: MW.SDS 08:18 → MW.MS 14:11
PROVIDERS: ADMIT Surgery; ATTEND Surgery
PROC: 0FT40ZZ Resection of Gallbladder, Open Approach (ICD-10-PCS; principal; 2020-12-13)
PROC: 0FJ44ZZ Inspection of Gallbladder, Percutaneous Endoscopic Approach (ICD-10-PCS; 2020-12-13)
DX: K80.00 Calculus of gallbladder with acute cholecystitis without obstruction (principal); K82.1 Hydrops of gallbladder
CPT/HCPCS: 36415; 51702; 80053; 81025; 85027; A9270-GY; J0131; J0690; J1170; J1885; J2250; J2270; J2405; J2704; J3010; J3490; J7120